=== PATIENT | male | born 1965 | race Caucasian/White ===

== ENCOUNTER 2019-05-07 09:43 | Observation (INO) ==
[2019-05-07 10:39] LABS: INR 1.2; Prothrombin Time 13.2 Seconds (9.4-12.1)
[2019-05-07 10:42] LABS: Activated Partial Thrombo Time 29.9 Seconds (26.0-36.0)
[2019-05-07 10:43] LABS: Basophils % 0.2 %; Hematocrit 39.9 % (37.5-50.1); Hemoglobin 13.2 g/dL (12.9-16.9); Immature Granulocytes % 0.2 % (0-4); Lymphocytes # 0.5 K/mcL (0.6-4.6); Lymphocytes % 5.8 %; Mean Corpuscular HGB Conc 33.1 g/dL (31.6-35.5); Mean Corpuscular Hemoglobin 30.2 pg (28.0-33.3); Mean Corpuscular Volume 91.3 fL (83.0-100.0); Mean Platelet Volume 10.7 fL (9.4-12.4); Monocytes # 0.9 K/mcL (0.0-1.3); Monocytes % 10.5 %; Neutrophils # 7.1 K/mcL (1.6-8.9); Platelet Count 163 K/mcL (140-400); Red Blood Count 4.37 M/mcL (4.19-5.50); Red Cell Distribution Width 12.7 % (11.5-14.5); Segmented Neutrophils % 83.3 %; White Blood Count 8.5 K/mcL (4.3-11.1)
[2019-05-07 10:54] LABS: BUN/Creatinine Ratio 15 (6-26); Blood Urea Nitrogen 15 mg/dL (6-20); Calcium 9.5 mg/dL (8.6-10.3); Carbon Dioxide 26 mEq/L (23-29); Chloride 103 mEq/L (98-107); Glucose 124 mg/dL (70-105); Osmolality,Calculated 292 (280-300); Potassium 3.7 mEq/L (3.5-5.1); Sodium 140 mEq/L (136-145); Troponin I < 0.03 ng/mL (< 0.04); eGFR For African Americans > 60 (> 60); eGFR For Non-African Americans > 60 (> 60)
[2019-05-07] MEDS ORDERED: Naloxone 0.4 MG/ML INJ IVP PRN (11:31)
[2019-05-07] MEDS ORDERED: Ondansetron 4 MG/2 ML VIAL IVP PRN (11:31)
[2019-05-07] MEDS ORDERED: 0.9 % Sodium Chloride 1,000 ML IVC SCH (11:45)
[2019-05-07 16:15] LABS: Adenovirus Not Detected (Not Detect); Bordetella Pertussis Not Detected (Not Detect); Chlamydophila pneumoniae Not Detected (Not Detect); Coronavirus 229E Not Detected (Not Detect); Coronavirus HKU1 Not Detected (Not Detect); Coronavirus NL63 Not Detected (Not Detect); Coronavirus OC43 Not Detected (Not Detect); Human Metapneumovirus Not Detected (Not Detect); Human Rhinovirus/Enterovirus Not Detected (Not Detect); Influenza A Subtype 2009 H1 Not Detected (Not Detect); Mycoplasma pneumoniae Not Detected (Not Detect); Parainfluenza Virus 1 Not Detected (Not Detect); Parainfluenza Virus 2 Not Detected (Not Detect); Parainfluenza Virus 3 Not Detected (Not Detect); Parainfluenza Virus 4 Not Detected (Not Detect); Respiratory Syncytial Virus Not Detected (Not Detect)
[2019-05-07 16:17] LABS: Influenza B DETECTED (Not Detect)
[2019-05-07] MEDS: Acetaminophen 325 MG TABLET PO PRN (16:32)
[2019-05-07] MEDS: *HR* Heparin 5,000 UNIT/ML VIAL SQ SCH (17:48)
[2019-05-08] MEDS: Acetaminophen 325 MG TABLET PO PRN (00:12)
[2019-05-08] MEDS: *HR* Heparin 5,000 UNIT/ML VIAL SQ SCH (05:26)
[2019-05-08] MEDS ORDERED: lisinopriL 20 MG TABLET PO SCH (09:00)
[2019-05-08] MEDS ORDERED: Aspirin 81 MG TAB.CHEW PO SCH (14:00)
[2019-05-08 14:57] VITALS: BP 154/97
[2019-05-08] MEDS ORDERED: amLODIPine 5 MG TABLET PO SCH (21:00)
== END 2019-05-08 16:25 | disposition home or self-care (01) ==
LOC: 3ANU 09:43 → EMEROOARM 09:43 → SUATTDRO 11:31 → 3ANU 13:20
PROVIDERS: ADMIT Internal Medicine; ATTEND Family Medicine